=== PATIENT | male | born 1975 | race Caucasian/White ===

== ENCOUNTER → 2019-09-11 07:10 | Outpatient (CLI) | payer OTHER, SELFPAY ==
[2019-09-11 10:27] LABS: Hematocrit 46.2 % (40-54); Hemoglobin 15.2 g/dL (13.0-16.5); Mean Corp Hgb Conc 32.9 g/dL (32-36); Mean Corpuscular Hgb 30.6 pg (27.0-32.0); Mean Corpuscular Volume 93.1 fL (80-94); Mean Platelet Vol. 11.1 fl (6.2-12.0); Platelet Count 240 K/mm3 (150-450); RBC Distribution Width CV 13.2 % (11.6-14.6); RBC Distribution Width SD 44.3 fl (35.1-43.9); Red Blood Count 4.96 M/mm3 (4.6-6.2); White Blood Count 4.1 K/mm3 (4.4-11.0)
[2019-09-11 10:42] LABS: Cholesterol 189 mg/dL (200); High Density Lipoprotein 36 mg/dL; Triglycerides 312 mg/dL; Very Low Density Lipoprotein 62 mg/dL (5-40)
== END ==
PROVIDERS: PCP Family Medicine; Referring Provider Physician Assistant Surgical; Visit Provider Physician Assistant Surgical
DX: Z00.00 Encounter for general adult medical examination without abnormal findings (principal)
CPT/HCPCS: 36415; 80061; 85027

== ENCOUNTER → 2020-07-30 16:11 | Outpatient (CLI) | payer OTHER, SELFPAY ==
[2020-07-30 16:00] VITALS: BMI 38.2
--- NOTE | 2020-07-30 16:15 | RAD_ITS ---
STUDY: X-RAY - RIGHT ANKLE REASON FOR EXAM: Male, 45 years old. fall off ladder, right ankle injury TECHNIQUE: 3 view(s) of the ankle. COMPARISON: None. FINDINGS: Normal visualized distal tibia and fibula. Normal medial and lateral malleoli. Normal tibiotalar articulation and ankle mortise. Normal visualized talus and calcaneus. The visualized subtalar, talonavicular, calcaneocuboid and tarsal articulations are normal. There is no demonstrated fracture. The soft tissue structures are unremarkable. RAD/Ankle min 3 Views IMPRESSION: Normal x-ray examination of the ankle. Electronically Signed: Scott Varma MD at 17:16 EDT , Service support ,
== END ==
PROVIDERS: PCP Family Medicine; Referring Provider Physician Assistant Surgical; Visit Provider Physician Assistant Surgical
DX: S96.911A Strain of unspecified muscle and tendon at ankle and foot level, right foot, initial encounter (principal)
CPT/HCPCS: 73610

== ENCOUNTER → 2020-09-30 | Outpatient (CLI) | payer OTHER, SELFPAY ==
[2020-07-30 16:00] VITALS: BMI 38.2
== END | disposition home or self-care (01) ==
LOC: LABSPEC 12:51
PROVIDERS: PCP Family Medicine; Visit Provider Family Medicine
DX: J02.9 Acute pharyngitis, unspecified (principal); R59.9 Enlarged lymph nodes, unspecified; R50.9 Fever, unspecified; M25.50 Pain in unspecified joint
CPT/HCPCS: 87635; U0005; U0003

== ENCOUNTER → 2020-10-10 16:46 | Outpatient (CLI) | payer OTHER, SELFPAY ==
[2020-07-30 16:00] VITALS: BMI 38.2
--- NOTE | 2020-10-10 16:56 | CT_ITS ---
STUDY: CT SOFT TISSUE NECK WITH CONTRAST REASON FOR EXAM: Male, 45 years old. BENIGN NEOPLASM OF TONSIL RADIATION DOSAGE (If Supplied By Facility): CTDIvol = ( 18.24 ) mGy, DLP = ( 496.77 ) mGycm TECHNIQUE: The patient was scanned in a multi-detector CT scanner. High resolution transaxial imaging was performed following intravenous administration of 75 CC ISOVUE 370. Sagittal and coronal images were reconstructed. Individualized dose optimization techniques were used for this CT. COMPARISON: None. FINDINGS: Normal bilateral parotid glands. Normal bilateral call center support consultant spaces. Normal bilateral parapharyngeal spaces. Normal bilateral carotid spaces. Normal bilateral sublingual and submandibular glands and spaces. Normal visualized nasopharynx. Normal retropharyngeal space. Normal perivertebral space. There is a vague 2 x 1.8 x 1.7 cm left pharyngeal tonsil nodule. Punctate bilateral tonsilloliths. The visualized tongue, tongue base and oropharynx are normal. The visualized cervical lymph nodes (levels I-) are within normal size limits, and maintain normal morphology. These measure up to 1 cm short axis on the right, and 1.3 cm short axis on the left. There is no demonstrated solid or cystic mass lesion. There is no abnormal contrast enhancement. Normal epiglottis, bilateral vallecula and hypopharynx. The pre-epiglottic and paraglottic adipose spaces are normal. Normal visualized bilateral piriform sinuses, aryepiglottic folds, vocal cords, and arytenoid-cricoid articulations. Normal subglottic trachea. Normal bilateral lobes of the thyroid gland. Normal visualized pulmonary apices. Normal visualized paranasal sinuses. Normal visualized cervical spine. CT/Soft Tissue Neck WITH Contrast IMPRESSION: Vague left pharyngeal tonsil nodule measures about 2 cm. Punctate bilateral tonsilloliths. No cervical lymphadenopathy. Electronically Signed: Saul Duron MD at 0:20 EDT Tel , Service support ,
== END ==
PROVIDERS: PCP Family Medicine; Referring Provider Otolaryngology; Visit Provider Otolaryngology
DX: D10.4 Benign neoplasm of tonsil (principal)
CPT/HCPCS: 70491; Q9967

== ENCOUNTER 2020-10-18 06:29 | Day surgery (SDC) | payer OTHER, SELFPAY ==
[2020-10-18] VITALS (9 sets, daily range): BP systolic 130–157; BP diastolic 67–94; PULSE 85–99; RESP 16–93; TEMP 36.1–36.2; O2SAT 92–97; BMI 39.4
--- NOTE | 2020-10-18 06:31 | EKG12_ITS ---
Test Reason : PREOP Blood Pressure : / mmHG Vent. Rate : 086 BPM Atrial Rate : 086 BPM P-R Int : 174 ms QRS Dur : 090 ms QT Int : 364 ms P-R-T Axes : 051 039 015 degrees QTc Int : 435 ms Normal sinus rhythm Low voltage QRS Borderline ECG Confirmed by DICKSON VINSON, MUNA ([id number]), deputy editor in chief DAVID LINO ([id number]) on 10/23/2020 10:00:50 AM Referred By: Danial Chong Confirmed By:MUNA FORMAN MD
[2020-10-18 07:49] LABS: Hemoglobin 14.4 g/dL (13.0-16.5); Mean Corp Hgb Conc 32.7 g/dL (32-36); Mean Corpuscular Hgb 29.3 pg (27.0-32.0); Mean Corpuscular Volume 89.4 fL (80-94); Mean Platelet Vol. 9.8 fl (6.2-12.0); Platelet Count 223 K/mm3 (150-450); RBC Distribution Width CV 14.1 % (11.6-14.6); RBC Distribution Width SD 46.2 fl (35.1-43.9); Red Blood Count 4.92 M/mm3 (4.6-6.2); White Blood Count 3.6 K/mm3 (4.4-11.0)
[2020-10-18] MEDS: Lactated Ringers 1,000 ML 100 ML IV (07:49)
[2020-10-18 07:59] LABS: Anion Gap 4 (5-15); BUN 9 mg/dL (7-18); BUN/Creat Ratio 12.9 RATIO (10-20); Calcium,Total 9.1 mg/dL (8.5-10.1); Chloride 103 mmol/L (98-107); EST Glomerular Filtration Rate 131 mL/min (>60); Est Glom Filt Rate - Afr Amer 159 mL/min (>60); Estimated Creatinine Clearance 153.78 ml/min; Glucose 221 mg/dL (74-106); Potassium 3.9 mmol/L (3.5-5.1); Sodium Level 138 mmol/L (136-145)
[2020-10-18 08:00] LABS: Bedside Glucose 221 mg/dL (70-110)
--- NOTE | 2020-10-18 08:20 | TONS_PTH ---
PATIENT: MENA DAVIDSON LOC: [facility] [place] U#:[id number] AGE/SX: 45/M ROOM: RE10/18/[address]: Dr. Danial Chong MD : 1975 BED: DIS: 10/18/2020 SPEC #: [id number] RECD: 10/18/20 10:00 STATUS: MENA RENatasha #: [id number] ALEJANDRA: 10/18/20 08:[address]: Danial Chong DEPT: SURGICAL PATHOLOGY RECD BY: Bonnie Gonzalez ENTERED: 10/18/20 10:36 SP TYPE: TONSILS OTHR DR: Dr. Jimmy Madera, DO Tissues: A - Tonsil, NOS B - Tonsil, NOS Procedures: Surgery Specimen Level III HEADER OPERATION: Tonsillectomy PRE-OP DIAGNOSIS: Chronic tonsillitis TISSUE SUBMITTED: A ? Right tonsil, B ? Left tonsil MICROSCOPIC DIAGNOSIS A. Right tonsil, tonsillectomy: Reactive lymphoid hyperplasia, consistent with chronic tonsillitis. Focal actinomyces colonization. B. Left tonsil, tonsillectomy: Reactive lymphoid hyperplasia, consistent with chronic tonsillitis. Focal actinomyces colonization. MING:derick 10/21/2020 MICROSCOPIC DESCRIPTION Slides are reviewed. GROSS DESCRIPTION A - Received in formalin labeled with the patient's name and designated right tonsil. The specimen consists of a tonsil that weighs 9.5 gm and measures 5 x 2.5 x 2 cm. It shows a suture. The external surface is pink-monterroso, smooth, glistening and somewhat lobulated. Focally it is hemorrhagic, granular and bears cautery artifact. Serial cross sections through the tonsil reveal normal tonsillar architecture. Medical Administrative Assistant sections are submitted in two cassettes. B - Received in formalin labeled with the patient's name and designated left tonsil. The specimen consists of a tonsil that weighs 9.6 gm and measures 5 x 2 x 2.5 cm. The external surface is pink-monterroso, smooth, glistening and somewhat lobulated. Focally it is hemorrhagic, granular and bears cautery artifact. Serial cross sections through the tonsil reveal normal tonsillar architecture. Medical Administrative Assistant sections are submitted in two cassettes. / MING:derick 10/18/20 TC:3 CPT: 98572 x2
[2020-10-18 09:08] LABS: Hemoglobin A1c 7.2 % (3.8-5.6)
--- NOTE | 2020-10-18 09:29 | OP.PCM_ITS ---
Problems Associated Problem List Diagnoses (1) Chronic tonsillitis: (2) Tonsillar hypertrophy: (3) Cervical lymphadenopathy: Report of Operation Date of Procedure: 10/18/20 Pre-Operative Diagnosis: Chronic tonsillitis, tonsillar hypertrophy, cervical lymphadenopathy Post-Operative Diagnosis: Same Surgery/Procedure Performed:: Tonsillectomy Description of Surgical Findings:: Devonte is a 45-year-old male who initially presented to the emergency department for progressive tonsillar hypertrophy and sore throat as well as left neck swelling. He was diagnosed with acute tonsillitis and was started on clindamycin however over his 2-week treatment course this failed to show any significant improvement the possibility of neoplasm was considered and CT showed asymmetric tonsillar enlargement and a large left MINH node. Management options with biopsy, tonsillectomy, or continue observation was discussed. Given his associated dysphagia and throat discomfort he desired tonsillectomy. The risks, alternatives, potential complications, and benefits were discussed at length and any questions answered to the patient and/or caregiver's satisfaction. Witnessed informed consent was obtained in the office, and the patient and/or caregiver was agreeable to proceed. Procedure went as follows: The patient was identified in the preoperative holding, brought to the operating room, was placed under general anesthesia and intubated. When appropriate anesthesia was obtained, the head of bed was rotated and the patient prepped and draped in usual sterile fashion. A Chuck Wilfredo mouthgag was then placed and the patient suspended from the Stoddard stand. The oral cavity was examined and noted to have 4+ cryptic tonsillar hypertrophy. Beginning on the right side, the right tonsil was then grasped with a curved tenaculum and dissected from the underlying capsule with monopolar cautery. There is noted to be extensive inflammatory change and fibrosis to the tonsillar capsule. This was then sent as specimen. Similar procedure was then completed on the contralateral side. The oral and nasal cavities were then irrigated with saline solution. An NG tube was then placed to decompress the stomach. The patient was then returned to anesthesia, revived and extubated having tolerated the procedure well. Surgeon: Danial Chong Type of Anesthesia: General Anesthesiologist: Danial Brush Special Medications: none Specimen's removed: bilateral tonsils Drains: none Estimated Blood Loss (mL): 0 mL Fluids Replaced: 800 mL Grafts/Implants Used: none Complications none Admit VTE Documentation VTE Present on Admission: No VTE Mechan Device Prophylaxis: SCD's VTE Pharm Prophylaxis ordered?: No
--- NOTE | 2020-10-18 09:38 | PCM.DC ---
Discharge Instructions Diet Discharge Diet: No restrictions Activity Discharge Activity: Return to Normal Activity Dressing / Incision Call your doctor if your incision/area has: Sudden Increased Bleeding Call your doctor if you observe: Fever of 101 or Higher and Uncontrolled pain Follow Up Care Please Follow Up With: jayme When: 2 weeks Test Results: Test results from this visit will be discussed in further detail at your follow-up appointment, if applicable. Discharge Plan Admission Primary Reason for Your Visit: Chronic tonsillitis, tonsillar hypertrophy Attending Provider: Danial Chong Primary Care Provider: Jimmy Madera Discharge Orders/Prescriptions Prescriptions: New acetaminophen 500 mg Tablet 500 mg PO Q4H PRN PRN (Reason: Pain Score 1-5/10) Qty: 0 RF: 0 ibuprofen 600 mg Tablet 600 mg PO Q6H PRN PRN (Reason: Pain Score 4-10/10) Qty: 0 RF: 0 Continued doxycycline hyclate 100 mg Capsule 100 mg PO BID RF: 0 Discontinued acetaminophen-codeine 360 mg-36 mg /15 mL (15 mL) Solution 10 ml PO Q6H PRN (Reason: Pain) RF: 0 Referrals / Follow Up: Jimmy Madera DO [Primary Care Provider] - Disposition Disposition (needs filled in before D/C Order can be placed): Home, Self Care
[2020-10-18 10:11] LABS: Bedside Glucose 248 mg/dL (70-110)
[2020-10-18] MEDS: Acetaminophen 500 MG Tablet PO (10:41)
== END 2020-10-18 13:35 | disposition home or self-care (01) ==
LOC: SDC 06:30 → AC 06:31
PROVIDERS: Anesthesiology; PCP Family Medicine; Referring Provider Otolaryngology; Visit Provider Otolaryngology
PROC: (CPT 42826; principal; 2020-10-18 08:05)
DX: J35.01 Chronic tonsillitis (principal); R59.0 Localized enlarged lymph nodes; A42.9 Actinomycosis, unspecified; E78.5 Hyperlipidemia, unspecified; E11.9 Type 2 diabetes mellitus without complications; I10 Essential (primary) hypertension; Z87.891 Personal history of nicotine dependence
CPT/HCPCS: 00170; 42826; 80048; 82962; 83036; 85027; 88304; 93005; J7120; J2405

== ENCOUNTER → 2021-01-30 13:00 | Outpatient (CLI) | payer OTHER, SELFPAY | PROVIDERS: PCP Family Medicine; Referring Provider Family Medicine; Visit Provider Family Medicine | DX: G47.33 Obstructive sleep apnea (adult) (pediatric) (principal) | CPT/HCPCS: 95806 ==

== ENCOUNTER 2021-03-20 09:00 | Outpatient (CLI) | payer OTHER, SELFPAY | END 2021-03-20 23:59 | disposition short-term general hospital (02) | LOC: SL 09:17 | PROVIDERS: PCP Family Medicine; Visit Provider Family Medicine | DX: Z00.00 Encounter for general adult medical examination without abnormal findings (principal) ==

== ENCOUNTER → 2021-12-29 | Outpatient (CLI) | payer OTHER, SELFPAY ==
[2021-12-29 12:08] LABS: Absolute Lymphocyte Count 1.86 X10^3/uL (0.83-4.51); Absolute Neutrophil Count 1.8 X10^3/uL (2.0-7.7); Basophil# 0.04 X10^3/uL; Basophil% 0.9 % (0-1); Eosinophil# 0.18 X10^3/uL; Eosinophils% 4.1 % (0-5); Hematocrit 46.1 % (40-54); Hemoglobin 15.8 g/dL (13.0-16.5); Lymphocyte # 1.86 X10^3/ul (0.83-4.51); Lymphocyte % 42.7 % (19-41); Mean Corp Hgb Conc 34.3 g/dL (32-36); Mean Corpuscular Hgb 30.7 pg (27.0-32.0); Mean Corpuscular Volume 89.5 fL (80-94); Mean Platelet Vol. 10.2 fl (6.2-12.0); Monocyte# 0.43 X10^3/uL; Monocyte% 9.9 % (0-10); NRBC Flagged by Analyzer 0 % (0-5); Neutrophil # 1.83 X10^3/uL (2.7-7.7); Neutrophil % 41.9 % (47-70); Platelet Count 274 K/mm3 (150-450); RBC Distribution Width CV 12.9 % (11.6-14.6); RBC Distribution Width SD 42.3 fl (35.1-43.9); Red Blood Count 5.15 M/mm3 (4.6-6.2); White Blood Count 4.4 K/mm3 (4.4-11.0)
[2021-12-29 12:31] LABS: ALB/GLOB Ratio 1.1 RATIO (0.9-2.4); AST(SGOT) 25 U/L (15-37); Alanine Aminotransfer ALT/SGPT 51 U/L (16-61); Albumin, Serum 3.6 g/dL (3.2-5.0); Alkaline Phosphatase 82 U/L (45-117); Anion Gap 7 (5-15); BUN 11 mg/dL (7-18); BUN/Creat Ratio 14.3 RATIO (10-20); Calcium,Total 9.3 mg/dL (8.5-10.1); Chloride 102 mmol/L (98-107); Cholesterol 173 mg/dL (200); Creatinine, Serum 0.77 mg/dL (0.70-1.30); EST Glomerular Filtration Rate 117 mL/min (>60); Est Glom Filt Rate - Afr Amer 141 mL/min (>60); Globulin 3.3 g/dL (2.2-4.2); Glucose 156 mg/dL (74-106); Hemoglobin A1c 7.7 % (3.8-5.6); High Density Lipoprotein 32 mg/dL; Potassium 3.8 mmol/L (3.5-5.1); Protein, Total 6.9 g/dL (6.4-8.2); Sodium Level 139 mmol/L (136-145); Triglycerides 432 mg/dL
[2022-01-02 14:36] LABS: Testosterone Free 0.9 pg/mL (6.8-21.5)
== END | disposition home or self-care (01) ==
LOC: BFHLAB 08:52
PROVIDERS: PCP Family Medicine; Visit Provider Family Medicine
DX: Z00.00 Encounter for general adult medical examination without abnormal findings (principal); E11.9 Type 2 diabetes mellitus without complications; E29.1 Testicular hypofunction; Z51.81 Encounter for therapeutic drug level monitoring
CPT/HCPCS: 36415; 80053; 80061; 83036; 84153; 84402; 84403; 85025; G0103

== ENCOUNTER → 2022-07-09 | Outpatient (CLI) | payer OTHER, SELFPAY ==
[2022-07-09 12:35] LABS: Absolute Lymphocyte Count 1.89 X10^3/uL (0.83-4.51); Absolute Neutrophil Count 2.2 X10^3/uL (2.0-7.7); Basophil# 0.06 X10^3/uL; Basophil% 1.2 % (0-1); Eosinophils% 4.1 % (0-5); Hematocrit 50.1 % (40-54); Hemoglobin 16.9 g/dL (13.0-16.5); Lymphocyte # 1.89 X10^3/ul (0.83-4.51); Lymphocyte % 38.3 % (19-41); Mean Corp Hgb Conc 33.7 g/dL (32-36); Mean Corpuscular Hgb 30.5 pg (27.0-32.0); Mean Corpuscular Volume 90.4 fL (80-94); Mean Platelet Vol. 10.8 fl (6.2-12.0); Monocyte# 0.51 X10^3/uL; Monocyte% 10.3 % (0-10); NRBC Flagged by Analyzer 0 % (0-5); Neutrophil # 2.23 X10^3/uL (2.7-7.7); Neutrophil % 45.3 % (47-70); Platelet Count 251 K/mm3 (150-450); RBC Distribution Width CV 13.2 % (11.6-14.6); Red Blood Count 5.54 M/mm3 (4.6-6.2); White Blood Count 4.9 K/mm3 (4.4-11.0)
[2022-07-09 13:00] LABS: Cholesterol 172 mg/dL (200); High Density Lipoprotein 34 mg/dL; Triglycerides 288 mg/dL; Very Low Density Lipoprotein 58 mg/dL (5-40)
[2022-07-09 13:46] LABS: Hemoglobin A1c 6.8 % (3.8-5.6)
[2022-07-15 13:08] LABS: Testosterone, % Free 3.35 % (1.50-4.20); Testosterone, Free 25.23 ng/dL (5.00-21.00); Testosterone, Total 753 ng/dL (264-916)
== END | disposition home or self-care (01) ==
LOC: BFHLAB 09:01
PROVIDERS: PCP Family Medicine; Referring Provider Family Medicine; Visit Provider Family Medicine
DX: E11.9 Type 2 diabetes mellitus without complications (principal); E78.5 Hyperlipidemia, unspecified; E29.1 Testicular hypofunction
CPT/HCPCS: 36415; 80061; 83036; 84402; 84403; 85025

== ENCOUNTER → 2023-03-18 | Outpatient (CLI) | payer OTHER, SELFPAY ==
[2023-03-18 12:38] LABS: Absolute Lymphocyte Count 1.32 X10^3/uL (0.83-4.51); Absolute Neutrophil Count 2.3 X10^3/uL (2.0-7.7); Basophil# 0.07 X10^3/uL; Basophil% 1.6 % (0-1); Eosinophil# 0.18 X10^3/uL; Eosinophils% 4.2 % (0-5); Hematocrit 52.1 % (40-54); Hemoglobin 17.2 g/dL (13.0-16.5); Lymphocyte # 1.32 X10^3/ul (0.83-4.51); Lymphocyte % 30.6 % (19-41); Mean Corpuscular Hgb 30.1 pg (27.0-32.0); Mean Corpuscular Volume 91.2 fL (80-94); Mean Platelet Vol. 10.9 fl (6.2-12.0); Monocyte# 0.43 X10^3/uL; NRBC Flagged by Analyzer 0 % (0-5); Neutrophil # 2.29 X10^3/uL (2.7-7.7); Neutrophil % 52.9 % (47-70); Platelet Count 249 K/mm3 (150-450); RBC Distribution Width CV 13.1 % (11.6-14.6); RBC Distribution Width SD 43.8 fl (35.1-43.9); Red Blood Count 5.71 M/mm3 (4.6-6.2); White Blood Count 4.3 K/mm3 (4.4-11.0)
[2023-03-18 13:13] LABS: Microalbumin,Random Urine 17.5 mg/L (NO RANGE EST.); Microalbumin:Creatinine Ratio 30.1 mg/g CRE (<30 mg/g CRE)
[2023-03-18 13:23] LABS: ALB/GLOB Ratio 1.1 RATIO (0.9-2.4); AST(SGOT) 21 U/L (15-37); Alanine Aminotransfer ALT/SGPT 46 U/L (16-61); Albumin, Serum 3.8 g/dL (3.2-5.0); Alkaline Phosphatase 59 U/L (45-117); Anion Gap 7 (5-15); BUN 11 mg/dL (7-18); BUN/Creat Ratio 12.9 RATIO (10-20); Calcium,Total 9.1 mg/dL (8.5-10.1); Chloride 102 mmol/L (98-107); Cholesterol 176 mg/dL (200); Creatinine, Serum 0.86 mg/dL (0.70-1.30); EST Glomerular Filtration Rate 102 mL/min (>60); Est Glom Filt Rate - Afr Amer 124 mL/min (>60); Globulin 3.4 g/dL (2.2-4.2); Glucose 179 mg/dL (74-106); High Density Lipoprotein 38 mg/dL; PSA,Total - Annual Screen 0.49 ng/mL (0.00-4.00); Protein, Total 7.2 g/dL (6.4-8.2); Sodium Level 136 mmol/L (136-145); Triglycerides 297 mg/dL; Very Low Density Lipoprotein 59 mg/dL (5-40)
[2023-03-18 13:47] LABS: Hemoglobin A1c 7.4 % (3.8-5.6)
== END | disposition home or self-care (01) ==
LOC: BFHLAB 08:13
PROVIDERS: PCP Family Medicine; Visit Provider Family Medicine
DX: Z00.00 Encounter for general adult medical examination without abnormal findings (principal); E11.9 Type 2 diabetes mellitus without complications; E29.1 Testicular hypofunction
CPT/HCPCS: 36415; 80053; 80061; 82043; 82570; 83036; 84153; 84403; 85025; G0103

== ENCOUNTER 2023-04-06 06:08 | Day surgery (SDC) | payer OTHER, SELFPAY ==
--- OUTSIDE RECORDS SUMMARY | 2023-04-06 06:12 | XMS RPT_ITS | CCD ---
Author Name Unknown Address [address] [place] [address] Organization [facility] Care Team Providers Care Foreign Banknote Teller Name Role Phone Williamsmanav John Unavailable Unavailable PROVIDER, UNKNOWN Unavailable Unavailable Cassy, John Unavailable Unavailable BRIDLE, RACHID R. Unavailable Unavailable PROVIDER, UNKNOWN Unavailable Unavailable Cassy, John Unavailable Unavailable BRIDLE, RACHID R. Unavailable Unavailable PROVIDER, UNKNOWN Unavailable Unavailable Cassy, John Unavailable Unavailable BRIDLE, RACHID R. Unavailable Unavailable PROVIDER, UNKNOWN Unavailable Unavailable Cassy, John Unavailable Unavailable BRIDLE, RACHID R. Unavailable Unavailable PROVIDER, UNKNOWN Unavailable Unavailable Cassy, John Unavailable Unavailable Problems Problem Classification Problem Date Documented Da te Episodic/Chronic Abdominal pain (4 sources) Epigastric pain; Translations: [Unspecified abdominal pain] Onset: 12-08-2017 Episodic Biliary tract disease (2 sources) Other specified diseases of gallbladder; Translations: [Other specified diseases of gallbladder] Onset: 12-20-2017 Episodic Esophageal disorders (2 sources) Gastro-esophageal reflux disease without esophagitis; Translations: [Gastro-esophageal reflux disease without esophagitis] Onset: 12-13-2017 Chronic Gastritis and duodenitis (2 sources) Unspecified chronic gastritis without bleeding; Translations: [Unspecified chronic gastritis without bleeding] Onset: 12-08-2017 Chronic Other diseases of kidney and ureters (2 sources) Hypertrophy of kidney; Translations: [Hypertrophy of kidney] Onset: 12-08-2017 Episodic Other gastrointestinal disorders (2 sources) Splenomegaly, not elsewhere classified; Translations: [Splenomegaly, not elsewhere classified] Onset: 12-08-2017 Episodic Other screening for suspected conditions (not mental disorders or infectious disease) (4 sources) Abnormal findings on diagnostic imaging of liver and biliary tract; Translations: [Abnormal findings on diagnostic imaging of other parts of digestive tract] Onset: 12-08-2017 Episodic Results Test Name Value Interpretation Reference Range Facil ity Encounters Encounter Date Encounter Type Care Provider Facility Start: 12-20-2017 Patient encounter procedure RACHID TIAN [facility] Start: 12-13-2017 [facility] Start: 12-08-2017 Patient encounter procedure RACHID Kwan [facility] Payers Date Payer Category Payer Unknown [id number] 1975 Unknown [id number] 1975 Unknown [id number] 1975 Unknown [id number] 1975 Unknown [id number] [id number] [id number] Private Health Insurance Summary Purpose Family History No Family History Records FoundNo Family History Records Found Advance Directives No Advanced Directives Records FoundNo Advanced Directives Records Found Hospital Course Note Patient ID: Tay Leyva Patient's PCP: JOHN JERONIMO Admit Date: 02/09/2018 Discharge Date: 02/10/18 Admitting Physician: John Boucher DO Discharge Physician: Fernando Arrington MD Active Discharge Diagnoses: Primary Problem Body mass index 39.0-39.9, adult Hospital Problems Active Hospital Problems Diagnosis Date Noted ? S/P gastric surgery [Z98.890] 02/09/2018 ? Body mass index 39.0-39.9, adult [Z68.39] 01/10/2018 ? Morbid obesity (HCC) [E66.01] Patient Active Problem List Diagnosis ? Morbid obesity (HCC) ? High blood pressure ? AUGIE on CPAP ? Diabetes (HCC) ? High cholesterol ? Back pain ? Joint pain, knee ? Joint pain, hip ? Abdominal pain ? Gallbladder mass ? Body mass index 39.0-39.9, adult ? S/P gastric surgery The patient was seen and examined on day of discharge and this discharge summary is in conjunction with any daily progress note from day of discharge. Code Status: Full Code Hospital Course: Pt underwent a LSG and tolerated the procedure well. Pt's p (more content not included)... Additional Source Comments (unrecognized sect ion and content) No Status Records FoundNo Status Records Found INFORMATION SOURCE (unrecogn ized section and content) DATE CREATED AUTHOR AUTHOR'S GABBY NICOLE 09/28/2018 [facility] FOR RECORDS PERTAINING TO PATIENTS WHO ARE OR HAVE BEEN ENROLLED IN A CHEMICAL DEPENDENCY/SUBSTANCEABUSE PROGRAM, SOME INFORMATION MAY BE OMITTED. This clinical summary was aggregated from multiple sources. Caution should be exercised in using it in the provision of clinical care. This summary normalizes information from multiple sources, and as a consequence, information in this document may materially change the coding, format and clinical context of patient data. In addition, data may be omitted in some cases. CLINICAL DECISIONS SHOULD BE BASED ON THE PRIMARY CLINICAL RECORDS. [facility]. provides no warranty or guarantee of the accuracy or completeness of information in this document.
[2023-04-06 06:25] VITALS: BP 126/72; PULSE 93; RESP 20; TEMP 36.5; O2SAT 97; BMI 37.6
--- NOTE | 2023-04-06 06:45 | PCM.HP.BLA ---
History and Physical Date of Admission: 04/06/23 Date of Service: 03/08/23 MR#: [id number] Acct: [id number] Name: MENA DAVIDSON Rep #: [id number] : 1975 Provider: Dr. Deirdre Farooq MD Age/Sex: 47/M Location: [facility] Status: Signed Intake Vital Signs 10/18/2106:35 03/08/2412:24 Height 6 ft 1.5 in 6 ft 2 in Weight: 306 lb BMI 39.2 BP 133/75 H Blood Pressure Location Rt brachial Position Sitting Respiration 17 Pulse 113 H Pulse Source Monitor Pulse Oximetry (%) 96 Oxygen Delivery Method room air Intake Visit Reasons: BLOOD IN STOOL Chief Complaint: blood in stool Is patient in pain?: No Allergies No Known Allergies Allergy (Verified 03/08/23 13:25) Medications acetaminophen 500 mg tablet 500 mg PO Q4H PRN PRN Pain Score 1-5/10 #0 tabs 10/18/20 [Rx Confirmed 03/08/23] ibuprofen 600 mg tablet 600 mg PO Q6H PRN PRN Pain Score 4-10/10 #0 tabs 10/18/20 [Rx Confirmed 03/08/23] cholecalciferol (vitamin D3) 125 mcg (5,000 unit) capsule 125 mcg PO DAILY 03/08/23 [History Confirmed 03/08/23] lisinopril 10 mg tablet 10 mg PO DAILY 03/08/23 [History Confirmed 03/08/23] mecobalamin (vitamin B12) 1,000 mcg chewable tablet 1,000 mcg PO DAILY 03/08/23 [History Confirmed 03/08/23] metformin 500 mg tablet 500 mg PO BID 03/08/23 [History Confirmed 03/08/23] multivitamin 1 tab PO DAILY 03/08/23 [History Confirmed 03/08/23] PFSH Medical History (Updated 03/08/23 @ 13:[address] Deirdre Farooq MD) Alcohol use Back pain CPAP (continuous positive airway pressure) dependence Depression Diabetes Dietary restriction Difficulty swallowing Former smoker Hypertension Marijuana use Wears glasses Surgical History History of gastric stapling Hx of arthroscopy of knee Hx of lymph node excision Family History (Updated 03/08/23 @ 13:24 by Isadora Lira) Father Colon cancer Diabetes Heart disease HypertensionGrandfather Colon cancerMother Breast cancer Diabetes Social History (Updated 03/08/23 @ 13:24 by Isadora Lira) Smoking Status: Former smoker alcohol intake: current substance use type: does not use HPI HPI HPI: 47-year-old male presents due to bright red blood per rectum. Patient states has been going on for about a month he will have occasional bright red blood when he wipes not on the stool. Patient states during this time he did have bouts of diarrhea. Patient states last time he had a blood was about 2 weeks ago and states his stools are currently soft. Patient does state occasionally he does get some urgency a couple times a week to happen at random not after eating or he needs to use the restroom. Patient's bowel movements daily. Patient states that his dad was diagnosed with colon cancer at age 68 and was able to have surgery no chemo, patient's paternal grandfather was also diagnosed in mid to late 60s and was metastatic at that time. ROS General General: Yes fatigue; No weight change, appetite, colon cancer, breast cancer or weakness HEENT HEENT: No difficulty swallowing, eye injury, eye surgery, swollen glands or hoarseness Endo Endocrine: Yes diabetes mellitus; No thyroid disease, thyroid cancer, Hair loss, heat intolerance or cold intolerance Skin Skin: No rash or changing moles Musc Musculoskeletal: No back problems, arthritis, rheumatoid arthritis, gout or joint pain Cardio Cardiovascular: Yes high blood pressure; No murmur, pacemaker, heart disease, atrial fibrillation, heart attack, heart stent, palpitations, shortness of breat with exertion or chest pain Psych Psychiatric: Yes depression; No anxiety or hearing voices Resp Respiratory: No shortness of breath, Yes sleep apnea, No cough, No COPD, No asthma, No emphysema and No wheezing Gastro Gastrointestinal: No abdominal pain, No nausea or vomiting, Yes diarrhea, No constipation, Yes blood in stool, No acid reflux, No hemorrhoids, No ulcers, No gallbladder problem and No black,tarry stools Ahsan Hematologic: No blood thinners, No blood disorders, No bleeding, No anemia and No blood clots Neuro Neurologic: No system reviewed and no additional complaints, except as documented, No as per HPI, No abnormal gait, No abnormal hearing, No abnormal movements, No abnormal speech, No behavioral changes, No burning sensations, No confusion, No convulsions, No disequilibrium, No dizziness, No localized weakness, No frequent falls, No headache(s), No lack of coordination, No loss of vision, No memory loss, No numbness, No other visual disturbances, No radicular pain, No restless legs, No sensory deficit, No syncope, No tingling, No tremor(s), No weakness and No other Exam Const General: cooperative, healthy appearing, comfortable and no acute distress [facility] Head: normocephalic and atraumatic Neck Neck: supple Resp Effort & Inspection: normal respiratory effort Cardio Rate: regular rate GI Inspection: non-distended Palpation: soft and nontender Other: KORY no external hemorrhoids, small amount of internal hemorrhoids anteriorly otherwise no mass or gross blood on exam. Skin General: no rashes or lesions noted Neuro General: CN's II-XI intact bilaterally Extrem General: normal to inspection Psych Mental Status: mental status grossly normal Attitude: cooperative Assessment and Plan Assessment and Plan (1) BRBPR (bright red blood per rectum): Status: Acute (2) FH: colon cancer in relative diagnosed at >50 years old: Status: Acute Comment: father and PGF (68 y/o & mid 60s metastatic) Plan I have discussed the above with the patient. I have offered the patient colonoscopy for evaluation. I have explained the risks/benefits of the procedure and described the procedure. I have discussed the risks with the patient, including but not limited to: infection, bleeding, perforation of the GI tract requiring emergency surgery, inability to complete the procedure, injury to any internal organs, complications of anesthesia, etc. - the patient understands and agrees to proceed. I have answered all the patient's questions to the patient's satisfaction and the patient has no further questions. The patient has been given instructions for the colon cleansing preparation. 1 day of clears, MiraLAX Dulcolax split prep. Deirdre Farooq M.D. Pager: [phone] [facility] [address] [place] [address], [facility], [address] [place] [address] Office: [phone] Coding Level of Care Code Off vis,new,level 3 Diagnoses BRBPR (bright red blood per rectum) K62.5 FH: colon cancer in relative diagnosed at >50 years old Z80.0 03/08/23 1340 <Electronically signed by Deirdre Farooq MD> Date Deirdre Farooq MD
[2023-04-06] MEDS: Lactated Ringers 1,000 ML 15 ML IV (06:50)
[2023-04-06 07:22] LABS: Bedside Glucose 146 mg/dL (74-106)
--- NOTE | 2023-04-06 07:30 | COLBX_PTH ---
PATHOLOGY RESULTS PATIENT: MENA DAVIDSON LOC: EN U#:[id number] AGE/SX: 47/M ROOM: RE04/06/[address]: Dr. Deirdre Farooq MD : 1975 BED: DIS: 04/06/2023 SPEC #: [id number] RECD: 04/06/23 10:50 STATUS: MENA RENatasha #: [id number] ALEJANDRA: 04/06/23 07:[address]: Deirdre Farooq DEPT: SURGICAL PATHOLOGY RECD BY: Bonnie Gonzalez ENTERED: 04/06/23 11:17 SP TYPE: COLON BX OTHR DR: Dr. Jimmy Madera, Tissues: Descending colon Sigmoid colon biopsy Procedures: Surgery Specimen Level IV HEADER OPERATION: Colonoscopy with polyp biopsy PRE-OP DIAGNOSIS: Bright red blood per rectum, family history of colon cancer TISSUE SUBMITTED: A - Polyp biopsy descending colon, B - Colon polyp biopsy sigmoid MICROSCOPIC DIAGNOSIS A. Descending colon polyp, biopsy: Tubular adenoma. B. Sigmoid colon polyp, biopsy: Fragments of hyperplastic polyp. SJ:derick 04/07/2023 MICROSCOPIC DESCRIPTION Slides are reviewed. GROSS DESCRIPTION A - Received in fixative is one container labeled with the patient's name and designated descending colon polyp biopsy. The specimen consists of one irregular fragment of light monterroso soft tissue that measures 0.5 x 0.5 x 0.1 cm. The specimen is totally submitted in one cassette. B - Received in fixative is one container labeled with the patient's name and designated sigmoid colon polyp biopsy. The specimen consists of multiple irregular fragments of light monterroso soft tissue that in aggregate measure 2.0 x 0.5 x 0.1 cm. The specimen is totally submitted in one cassette. / AM:derick 04/06/2023 TC:1 [facility]: [id number] x2
[2023-04-06 08:07] VITALS: BP 104/59; BP 126/72; PULSE 79; RESP 16; TEMP 36.2; O2SAT 95
[2023-04-06 08:10] VITALS: BP 101/56; BP 126/72; PULSE 82; RESP 16; O2SAT 94
--- NOTE | 2023-04-06 08:13 | OP.CCLET_ITS ---
04/06/2023 Jimmy Madera [address] [place] [address] Re : Colonoscopy procedure for Tay Leyva Dear Dr. Madera This procedure was performed on Thursday, April 06, 2023. My impressions and recommendations are as follows: Impressions : - Three less than 5 mm polyps in the sigmoid colon and in the descending colon, removed with a cold biopsy forceps. Resected and retrieved. - The examined portion of the ileum was normal. - The examination was otherwise normal on direct and retroflexion views. Recommendations : - Discharge patient to home. - Resume previous diet. - Continue present medications. - Await pathology results. - Repeat colonoscopy in 3 years for surveillance based on pathology results. My findings are described in the full procedure note, which is enclosed. If I can be of further assistance, please feel free to contact me at Doctor phone number(s): , Work: . Sincerely, MD Deirdre Cavanaugh MD 04/06/2023 8:12:29 AM This report has been signed electronically.
--- NOTE | 2023-04-06 08:13 | OP.COLON_ITS ---
Patient Name: Tay Leyva Procedure Date: 04/06/2023 6:17 AM Date of : 1975 Age: 47 Procedure: Colonoscopy Indications: Rectal bleeding Providers: Deirdre Farooq MD Medicines: Monitored Anesthesia Care Patient Profile: This is a 47 year old male. Last Colonoscopy: none. The patient's first colonoscopy is today. Complications: No immediate complications. Procedure: Pre-Anesthesia Assessment: - Prior to the procedure, a History and Physical was performed, and patient medications and allergies were reviewed. The patient's tolerance of previous anesthesia was also reviewed. The risks and benefits of the procedure and the sedation options and risks were discussed with the patient. All questions were answered, and informed consent was obtained. Prior Anticoagulants: The patient has taken no anticoagulant or antiplatelet agents. ASA Grade Assessment: Per anesthesia. After reviewing the risks and benefits, the patient was deemed in satisfactory condition to undergo the procedure. After I obtained informed consent, the scope was passed under direct vision. Throughout the procedure, the patient's blood pressure, pulse, and oxygen saturations were monitored continuously. The colonoscope was introduced through the anus and advanced to the terminal ileum. The colonoscopy was performed without difficulty. The patient tolerated the procedure well. The quality of the bowel preparation was good. Scope In: 7:28:52 AM Scope Withdrawal Time 0 hours 26 minutes 54 seconds Scope Out: 8:02:57 AM Total Procedure Duration Time 0 hours 34 minutes 5 seconds Findings: The perianal and digital rectal examinations were normal. Three sessile polyps were found in the sigmoid colon and descending colon. The polyps were less than 5 mm in size. These polyps were removed with a cold biopsy forceps. Resection and retrieval were complete. The terminal ileum appeared normal. The exam was otherwise without abnormality on direct and retroflexion views. Impression: - Three less than 5 mm polyps in the sigmoid colon and in the descending colon, removed with a cold biopsy forceps. Resected and retrieved. - The examined portion of the ileum was normal. - The examination was otherwise normal on direct and retroflexion views. Recommendation: - Discharge patient to home. - Resume previous diet. - Continue present medications. - Await pathology results. - Repeat colonoscopy in 3 years for surveillance based on pathology results. Procedure Code(s): --- Professional --- 29651, Colonoscopy, flexible; with biopsy, single or multiple Diagnosis Code(s): --- Professional --- D12.5, Benign neoplasm of sigmoid colon D12.4, Benign neoplasm of descending colon K62.5, Hemorrhage of anus and rectum CPT copyright 2021 [employer]. All rights reserved. The codes documented in this report are preliminary and upon scrap carrier review may be revised to meet current compliance requirements. MD Deirdre Cavanaugh MD 04/06/2023 8:12:29 AM This report has been signed electronically. Number of Addenda: 0 Note Initiated On: 04/06/2023 6:17 AM
[2023-04-06 08:15] VITALS: BP 103/50; BP 126/72; PULSE 80; RESP 16; O2SAT 96
[2023-04-06 08:20] VITALS: BP 126/72; BP 99/49; PULSE 90; RESP 16; TEMP 36.1; O2SAT 97
[2023-04-06 08:37] VITALS: BP 126/72
== END 2023-04-06 08:49 | disposition home or self-care (01) ==
LOC: EN 06:10 → AC 06:11
PROVIDERS: PCP Family Medicine; Referring Provider Family Medicine; Visit Provider Surgery
PROC: 0DJD8ZZ Inspection of Lower Intestinal Tract, Via Natural or Artificial Opening Endoscopic (ICD-10-PCS; CPT 45378; principal; 2023-04-06 07:25)
DX: D12.4 Benign neoplasm of descending colon (principal); E11.9 Type 2 diabetes mellitus without complications; K62.5 Hemorrhage of anus and rectum; Z87.891 Personal history of nicotine dependence; Z79.84 Long term (current) use of oral hypoglycemic drugs; Z80.0 Family history of malignant neoplasm of digestive organs; I10 Essential (primary) hypertension; Z79.899 Other long term (current) drug therapy; Z79.85 Long-term (current) use of injectable non-insulin antidiabetic drugs; E78.00 Pure hypercholesterolemia, unspecified
CPT/HCPCS: 45380; 82962; 88305; J7120; J2405

== ENCOUNTER → 2023-05-17 | Outpatient (CLI) | payer OTHER, SELFPAY ==
--- NOTE | 2023-05-17 07:37 | CT_ITS ---
STUDY: CT CHEST WITHOUT CONTRAST REASON FOR EXAM: Male, 48 years old. Hyperlipidemia, unspecified RADIATION DOSAGE (If Supplied By Facility): CTDIvol = ( 12.19 ) mGy, DLP = ( 243.79 ) mGycm TECHNIQUE: Transaxial imaging was performed without the administration of intravenous contrast material. Cardiac over read examination. Individualized dose optimization techniques were used for this CT. COMPARISON: No relevant priors. FINDINGS: CHEST The lungs are normal. There is no demonstrated pleural abnormality. There is mild calcifications of the coronary arteries. There are small lymph nodes within the mediastinum, which are normal in size and morphology most compatible with reactive lymph hyperplasia. Normal hilar regions. Normal unenhanced pulmonary arteries. There is mild atherosclerotic calcification of the aortic arch. Normal osseous structures. There is no demonstrated abnormality of the visualized upper abdomen. CT/Limited Chest CT Cardiac Only IMPRESSION: Mild degree of coronary artery calcification. Electronically Signed: Jordan Gr MD at 10:03 EDT ,
--- NOTE | 2023-05-17 08:50 | CA.SCORE ---
Calcium Scoring Date of Study:: 05/17/23 Indications Indications: Hyperlipidemia Coronary Calcium Scoring: High-resolution Computed Tomographic imaging of the chest was performed on [05/17/2023], with particular attention paid to the coronary arteries. Images from the examination were analyzed for the presence and extent of coronary artery calcification , using coronary calcium quantification software. The patient tolerated the procedure well and there were no complications. The results of the coronary calcification analysis are provided below. Findings Coronary Artery Left Main (LM): 0 Left Anterior Descending (LAD): 1.39 Left Circumflex (LCX): 0 Right Coronary Artery (RCA): 0 Total Agatston Score: 1.39 Percentile Rankinth to 50th percentile Calcium Scoring Interpretation: Different methods to categorize the overall amount of coronary plaque. Overall amount CAC SIS Visual of coronary plaque P1 Mild -100 <2 1-2 vessels with mild amount of plaque P2 Moderate 101-300 3-4 1-2 vessels with moderate amount, 3 vessels with mild amount of plaque P3 Severe 301-999 5-7 3 vessels with moderate amount, 1 vessel with severe amount of plaque P4 Extensive >1000 >8 2-3 vessels with severe amount of plaque Conclusion: Minimal atherosclerotic plaquing noted only.
== END | disposition home or self-care (01) ==
LOC: CT 07:37
PROVIDERS: PCP Family Medicine; Referring Provider Family Medicine; Visit Provider Family Medicine
DX: Z13.6 Encounter for screening for cardiovascular disorders (principal); E11.9 Type 2 diabetes mellitus without complications; E78.5 Hyperlipidemia, unspecified
CPT/HCPCS: 75571; 76380

== ENCOUNTER → 2023-07-22 | Outpatient (CLI) | payer OTHER, SELFPAY | END | disposition home or self-care (01) | LOC: SL 08:24 | PROVIDERS: PCP Family Medicine; Referring Provider Family Medicine; Visit Provider Family Medicine | DX: Z00.00 Encounter for general adult medical examination without abnormal findings (principal) ==

== ENCOUNTER → 2023-09-24 | Outpatient (CLI) | payer OTHER, SELFPAY ==
[2023-09-24 12:18] LABS: Absolute Neutrophil Count 2.3 X10^3/uL (2.0-7.7); Basophil# 0.05 X10^3/uL; Basophil% 1.2 % (0-1); Eosinophil# 0.19 X10^3/uL; Eosinophils% 4.4 % (0-5); Hematocrit 51.9 % (40-54); Lymphocyte % 30.2 % (19-41); Mean Corp Hgb Conc 32.8 g/dL (32-36); Mean Corpuscular Hgb 30.1 pg (27.0-32.0); Mean Corpuscular Volume 91.9 fL (80-94); Mean Platelet Vol. 10.8 fl (6.2-12.0); Monocyte# 0.45 X10^3/uL; Monocyte% 10.4 % (0-10); NRBC Flagged by Analyzer 0 % (0-5); Neutrophil % 53.3 % (47-70); Platelet Count 226 K/mm3 (150-450); RBC Distribution Width CV 13.3 % (11.6-14.6); RBC Distribution Width SD 45.1 fl (35.1-43.9); Red Blood Count 5.65 M/mm3 (4.6-6.2); White Blood Count 4.3 K/mm3 (4.4-11.0)
[2023-09-24 12:33] LABS: AST(SGOT) 26 U/L (15-37); Alanine Aminotransfer ALT/SGPT 46 U/L (16-61); Albumin, Serum 3.8 g/dL (3.2-5.0); Alkaline Phosphatase 70 U/L (45-117); Bilirubin, Direct 0.27 mg/dL (0.00-0.30); Cholesterol 125 mg/dL (200); Globulin 3.3 g/dL (2.2-4.2); High Density Lipoprotein 33 mg/dL; Protein, Total 7.1 g/dL (6.4-8.2); Triglycerides 307 mg/dL; Very Low Density Lipoprotein 61 mg/dL (5-40)
[2023-09-24 13:11] LABS: Hemoglobin A1c 6.4 % (3.8-5.6)
== END | disposition home or self-care (01) ==
LOC: BFHLAB 08:17
PROVIDERS: PCP Family Medicine; Referring Provider Family Medicine; Visit Provider Family Medicine
DX: E11.9 Type 2 diabetes mellitus without complications (principal); E78.5 Hyperlipidemia, unspecified; Z51.81 Encounter for therapeutic drug level monitoring
CPT/HCPCS: 36415; 80061; 80076; 83036; 84403; 85025

== ENCOUNTER → 2024-06-07 | Outpatient (CLI) | payer OTHER, SELFPAY ==
--- NOTE | 2024-06-07 11:46 | RAD_ITS ---
PROCEDURE: CHEST PA AND LATERAL (RADCXR), 06/07/2024 REASON FOR EXAM: PRESISTENT COUGH HX PNA TECHNIQUE: PA and lateral views of the chest were obtained. COMPARISON: None FINDINGS: Heart: Unremarkable. Mediastinum: Unremarkable. Lungs/pleura: Slight hypoinflation with vascular crowding. No convincing focal consolidation allowing for this and chest wall attenuation. No pleural effusion or visible pneumothorax. Bones: Multilevel spondylosis. Lines and support devices: None. Other: None. RAD/Chest PA and Lateral IMPRESSION: 1. Slight hypoinflation without visible acute cardiopulmonary findings 2. Additional description as above. Reading Location: [id number]
[2024-06-07 12:57] LABS: Absolute Lymphocyte Count 1.28 X10^3/uL (0.83-4.51); Absolute Neutrophil Count 1.8 X10^3/uL (2.0-7.7); Basophil# 0.04 X10^3/uL; Basophil% 1.1 % (0-1); Eosinophils% 5.3 % (0-5); Hemoglobin 16.4 g/dL (13.0-16.5); Lymphocyte # 1.28 X10^3/ul (0.83-4.51); Lymphocyte % 33.9 % (19-41); Mean Corp Hgb Conc 34.2 g/dL (32-36); Mean Corpuscular Hgb 30.3 pg (27.0-32.0); Mean Corpuscular Volume 88.6 fL (80-94); Mean Platelet Vol. 11.1 fl (6.2-12.0); Monocyte# 0.39 X10^3/uL; Monocyte% 10.3 % (0-10); NRBC Flagged by Analyzer 0 % (0-5); Neutrophil # 1.84 X10^3/uL (2.7-7.7); Neutrophil % 48.6 % (47-70); Platelet Count 243 K/mm3 (150-450); RBC Distribution Width CV 13.1 % (11.6-14.6); RBC Distribution Width SD 42.1 fl (35.1-43.9); Red Blood Count 5.42 M/mm3 (4.6-6.2); White Blood Count 3.8 K/mm3 (4.4-11.0)
[2024-06-07 13:49] LABS: ALB/GLOB Ratio 1.5 RATIO (0.9-2.4); AST(SGOT) 27 U/L (<=37); Alanine Aminotransfer ALT/SGPT 43 U/L (<=46); Albumin, Serum 4.3 g/dL (3.5-5.0); Alkaline Phosphatase 87 U/L (40-129); Anion Gap 13 (5-15); BUN 14 mg/dL (4-19); BUN/Creat Ratio 17.6 RATIO (10-20); Calcium,Total 9.2 mg/dL (7.6-11.0); Carbon Dioxide 25.6 mmol/L (21.0-32.0); Chloride 97 mmol/L (98-108); Creatinine, Serum 0.77 mg/dL (0.70-1.20); EST Glomerular Filtration Rate 111 (>60); Globulin 2.8 g/dL (2.2-4.2); Glucose 279 mg/dL (70-99); PSA,Total- Diagnostic 0.47 ng/mL (0.00-4.00); Potassium 3.8 mmol/L (3.3-5.1); Sodium Level 136 mmol/L (133-145); Total Bilirubin 0.64 mg/dL (0.00-1.30)
[2024-06-07 13:55] LABS: Hemoglobin A1c 10.3 % (<=5.6)
[2024-06-07 14:09] LABS: Cholesterol 354 mg/dL (<=200); High Density Lipoprotein 29 mg/dL; Low Density Lipoprotein Calc. 36 mg/dL; Triglycerides 1447 mg/dL; Very Low Density Lipoprotein 289 mg/dL (5-40); cholesterol:hdl ratio screen 12.16
== END | disposition home or self-care (01) ==
PROVIDERS: PCP Family Medicine; Referring Provider Family Medicine; Visit Provider Family Medicine
DX: Z00.00 Encounter for general adult medical examination without abnormal findings (principal); E11.9 Type 2 diabetes mellitus without complications; R79.89 Other specified abnormal findings of blood chemistry; Z51.81 Encounter for therapeutic drug level monitoring; R05.8 Other specified cough
CPT/HCPCS: 36415; 71046; 80053; 80061; 82043; 82570; 83036; 84153; 84403; 85025

== ENCOUNTER → 2024-10-11 | Outpatient (CLI) | payer OTHER, SELFPAY ==
[2024-10-11 12:28] LABS: Hematocrit 48.8 % (40-54); Hemoglobin 16.4 g/dL (13.0-16.5); Immature Granulocytes Count 0.010 X10^3/uL (0.0-0.0); Mean Corp Hgb Conc 33.6 g/dL (32-36); Mean Corpuscular Volume 89.7 fL (80-94); Mean Platelet Vol. 11.3 fl (6.2-12.0); NRBC Flagged by Analyzer 0 % (0-5); Platelet Count 227 K/mm3 (150-450); RBC Distribution Width CV 12.5 % (11.6-14.6); RBC Distribution Width SD 41.0 fl (35.1-43.9); Red Blood Count 5.44 M/mm3 (4.6-6.2); White Blood Count 3.8 K/mm3 (4.4-11.0)
[2024-10-11 13:07] LABS: Cholesterol 213 mg/dL (<=200); Low Density Lipoprotein Calc. 131 mg/dL; Triglycerides 193 mg/dL; Very Low Density Lipoprotein 39 mg/dL (5-40); cholesterol:hdl ratio screen 4.95
== END | disposition home or self-care (01) ==
LOC: MTLAB 09:43
PROVIDERS: PCP Family Medicine; Referring Provider Family Medicine; Visit Provider Family Medicine
DX: E11.9 Type 2 diabetes mellitus without complications (principal); E78.5 Hyperlipidemia, unspecified; E29.1 Testicular hypofunction; Z51.81 Encounter for therapeutic drug level monitoring
CPT/HCPCS: 36415; 80061; 83036; 84403; 85025